=== PATIENT | male | born 1930 | race Caucasian/White ===

== ENCOUNTER 2018-03-31 11:05 | Emergency (ER) | payer MEDICARE ==
[~2018-03-31] VITALS: Ht 167.6 cm; Wt 74.8 kg
[~2018-03-31 11:05] MED LIST: CLOP75 PO
[2018-03-31] MEDS ORDERED: Norco 5-325 Ta1 EACH PO (12:21)
== END 2018-03-31 12:25 | disposition home or self-care (01) ==
LOC: ER 11:05
DX: S40.011A Contusion of right shoulder, initial encounter (principal); W19.XXXA Unspecified fall, initial encounter; Z88.2 Allergy status to sulfonamides; Z88.8 Allergy status to other drugs, medicaments and biological substances; Z79.899 Other long term (current) drug therapy
CPT/HCPCS: 73030; 99283-25